=== PATIENT | female | born 1960 | race Caucasian/White ===

== ENCOUNTER 2017-10-18 21:33 | Emergency (ER) | payer BC, MEDICAID ==
[~2017-10-18] VITALS: Ht 172.7 cm; Wt 112.0 kg
[2017-10-18] MEDS ORDERED: LIDOCAINE HCL/EPINEPHRINE 1%-EPI 1:100,000 30 ML VIAL INFIL ONE (22:15)
[2017-10-18] MEDS ORDERED: MORPHINE SULFATE 10 MG/ML CPJ IV ONE (22:15)
[2017-10-18] MEDS ORDERED: LIDOCAINE HCL/EPINEPHRINE 1%-EPI 1:100,000 50 ML VIAL INFIL SCH (23:19)
[2017-10-19] MEDS ORDERED: MORPHINE SULFATE 4 MG/ML CPJ (NOT FOR IM USE) IV ONE (01:30)
[2017-10-19 05:15] VITALS: BP 107/64
== END 2017-10-19 05:50 | disposition home or self-care (01) ==
LOC: ER 21:33
DX: S81.012A Laceration without foreign body, left knee, initial encounter (principal); J45.909 Unspecified asthma, uncomplicated; W10.8XXA Fall (on) (from) other stairs and steps, initial encounter; Y93.89 Activity, other specified; Y92.89 Other specified places as the place of occurrence of the external cause; Y99.8 Other external cause status
CPT/HCPCS: 12006; 73560; 73590; 96374; 96376; 99284; J2270; J3490; Z7610